=== PATIENT | male | born 1995 | race Caucasian/White ===

== ENCOUNTER 2021-09-08 11:49 | Outpatient (REF) | payer OTHER, SELFPAY ==
[2021-09-08 13:49] LABS: MANUAL DIFF FLAG NO
[2021-09-08 13:58] LABS: Basophils Percent Auto 0.2 % (0-2); Eosinophils Percent Auto 0.9 % (0-4); Hematocrit 39.7 % (42.0-52.0); Hemoglobin 12.8 g/dl (14.0-18.0); Imm Gran Abs Auto 0.01 X10*3/uL (0.00-0.03); Imm Gran Pct Auto 0.2 % (0.0-0.4); Lymphocytes Absolute Auto 1.3 X10*3/uL (1.2-4.9); Lymphocytes Percent Auto 30.7 % (20-40); Mean Corpuscular HGB Conc 32.2 g/dl (31.0-36.0); Mean Corpuscular Hemoglobin 30.3 pg (27.0-33.0); Mean Corpuscular Volume 93.9 fL (80.0-98.0); Mean Platelet Volume 10.3 fL (9.4-12.4); Monocytes Absolute Auto 0.3 X10*3/uL (0.1-1.2); Monocytes Percent Auto 7.3 % (2-11); Neutrophils Absolute Auto 2.6 x10*3/uL (2.0-8.3); Neutrophils Percent Auto 60.7 % (45-73); Platelet Count 286 X10*3/uL (160-400); Red Blood Count 4.23 X10*6/uL (4.60-5.80); Red Cell Distribution Width 12.4 % (11.0-16.0); White Blood Count 4.4 X10*3/uL (4.8-10.8)
[2021-09-08 14:45] LABS: Alanine Aminotransferase 15 U/L (0-40); Albumin Level 4.5 g/dL (3.5-5.0); Alkaline Phosphatase 68 U/L (39-117); Anion Gap 10 (12-20); Aspartate Amino Transferase 19 U/L (5-37); Bilirubin Total 0.6 mg/dL (0.0-1.0); C Reactive Protein 0.02 mg/dL (< or = 0.50); Carbon Dioxide 28 mmol/L (22-29); Chloride 105 mmol/L (96-108); Cholesterol 181 mg/dL; Estimated Glomerular Filt Rate > 60; Glucose Fasting 99 mg/dL (60-99); Sodium 139 mmol/L (135-145); Total Protein 7.3 g/dL (6.5-8.0)
[2021-09-08 14:52] LABS: Thyroid Stimulating Hormone 0.65 uIU/mL (0.32-4.0)
[2021-09-08 15:25] LABS: Blood Urea Nitrogen 13 mg/dL (9-16); Calcium 9.8 mg/dL (8.4-10.2)
[2021-09-08 21:38] LABS: Vitamin B12 420 pg/mL (200-900)
== END 2021-09-08 11:50 | disposition home or self-care (01) ==
LOC: HO.10HDL 11:49
PROVIDERS: Visit Provider Internal Medicine
DX: Z00.00 Encounter for general adult medical examination without abnormal findings (principal); R63.4 Abnormal weight loss
CPT/HCPCS: 36415; 80053; 82465; 82607; 84439; 84443; 85025; 86140

== ENCOUNTER 2021-09-15 12:50 | Outpatient (REF) | payer OTHER, SELFPAY ==
--- NOTE | 2021-09-15 12:59 | EEG_ITS ---
This is a 16-channel EEG with an EKG lead. Patient is reported alert and awake during the tracing. Background EEG rhythm is low amplitude, fast with no obvious asymmetry or paroxysmal tendency. Photic stimulation does not produce any significant abnormality. Hyperventilation is not performed. Cardiac lead does not reveal any significant abnormality. IMPRESSION: Unremarkable EEG. MD SOPHIE Desouza/SULAIMAN / [id number]
== END 2021-09-15 12:51 | disposition home or self-care (01) ==
LOC: HO.NEURO 12:50
PROVIDERS: PCP Internal Medicine; Visit Provider Internal Medicine
DX: R51.9 Headache, unspecified (principal); F98.5 Adult onset fluency disorder
CPT/HCPCS: 95816

== ENCOUNTER 2021-09-19 13:45 | Emergency (ER) | payer OTHER, SELFPAY ==
[2021-09-19 13:54] VITALS: BP 148/85; PULSE 103; RESP 18; TEMP 36.7; O2SAT 99; BMI 21.9
[2021-09-19 15:56] LABS: MANUAL DIFF FLAG NO
[2021-09-19 15:57] LABS: Hematocrit 44.7 % (42.0-52.0); Hemoglobin 14.4 g/dl (14.0-18.0); White Blood Count 8.1 X10*3/uL (4.8-10.8)
[2021-09-19 15:58] LABS: Basophils Percent Auto 0.2 % (0-2); Eosinophils Percent Auto 0.1 % (0-4); Imm Gran Abs Auto 0.02 X10*3/uL (0.00-0.03); Imm Gran Pct Auto 0.2 % (0.0-0.4); Lymphocytes Absolute Auto 1.3 X10*3/uL (1.2-4.9); Lymphocytes Percent Auto 16.2 % (20-40); Mean Corpuscular HGB Conc 32.2 g/dl (31.0-36.0); Mean Corpuscular Volume 93.1 fL (80.0-98.0); Mean Platelet Volume 9.2 fL (9.4-12.4); Monocytes Absolute Auto 0.3 X10*3/uL (0.1-1.2); Monocytes Percent Auto 4.2 % (2-11); Neutrophils Absolute Auto 6.4 x10*3/uL (2.0-8.3); Neutrophils Percent Auto 79.1 % (45-73); Platelet Count 310 X10*3/uL (160-400); Red Cell Distribution Width 12.4 % (11.0-16.0)
[2021-09-19 16:17] LABS: Alanine Aminotransferase 25 U/L (0-40); Alkaline Phosphatase 66 U/L (39-117); Anion Gap 11 (12-20); Aspartate Amino Transferase 22 U/L (5-37); Bilirubin Total 0.8 mg/dL (0.0-1.0); Blood Urea Nitrogen 10 mg/dL (9-16); Calcium 10.2 mg/dL (8.4-10.2); Carbon Dioxide 29 mmol/L (22-29); Chloride 103 mmol/L (96-108); Creatinine Clr Calc Pharmacy 97.7; Estimated Glomerular Filt Rate > 60; Glucose Random 106 mg/dL (60-115); Potassium 4.3 mmol/L (3.3-5.1); Sodium 139 mmol/L (135-145); Total Protein 8.2 g/dL (6.5-8.0)
--- NOTE | 2021-09-19 17:29 | ED_ITS ---
HPI - Headache General Chief Complaint: Headache Stated Complaint: head pain numbness l side facial and hand Time Seen by Provider: 09/19/21 17:29 Source: patient Mode of arrival: ambulatory Limitations: no limitations History of Present Illness HPI Narrative: Patient nonspecific tingling pain on the top of the headache for 2 months off and on no photosensitivity no nausea no vomiting no neck pain patient does have history of migraine but is usually different location seen his PCP was started on Topamax and gabapentin pain does not increase with neck movement no hand weakness no nausea or vomiting Related Data Previous Rx's Medication Instructions Recorded faaoioopvr-ykxnvhypftoza-elyreagq 1 cap PO Q6H PRN #20 cap 09/19/21 50 mg-300 mg-40 mg capsule (Fioricet) lorazepam 1 mg tablet (Ativan) 1 mg PO BEDTIME PRN #7 tab 09/19/21 Allergies Allergy/AdvReac Type Severity Reaction Status Date / Time No Known Allergies Allergy Unverified 04/16/20 16:44 Review of Systems Review of Systems: Yes all other systems are reviewed and are negative [facility] Past Medical History Medical History Migraine Social History Social History Advance Directives: No Advance Directives Information Provided: No Physical Exam Vital Signs: Vital Signs: Last Vital Signs Temp 98.1 F 09/19/21 13:54 Pulse 103 H 09/19/21 13:54 Resp 18 09/19/21 13:54 BP 148/85 H 09/19/21 13:54 Pulse Ox 99 09/19/21 13:54 BMI result Body Mass Index 21.9 Appearance: Alert. Oriented X3. No acute distress. Eyes: PERRLA, No Nystagmus ENT: Pharynx normal. Oral Mucosa moist mild scalp tenderness at the top of the head Neck: Normal inspection. Neck supple. No midline tenderness CVS: Normal heart rate and rhythm. Pulses normal. Respiratory: No respiratory distress. Equal air entry bilateral Abdomen: Soft and nontender. Skin: Skin warm and dry. Normal skin color. Normal skin turgor. Extremities: No lower extremity edema. No calf tenderness Neuro: Oriented X 3. No motor deficit. No sensory deficit.No cerebellar signs , cranial nerves II-XII intact MDM - Headache MDM Narrative Medical decision making narrative: Patient with nonspecific scalp tenderness likely tension headache discharged on Fioricet Ativan for anxiety Lab Data Attestation: I reviewed the patient's lab results. Result diagrams: 09/19/21 15:51 09/19/21 15:51 Labs: Lab Results 09/19/21 09/19/21 Range/Units 15:51 15:51 WBC 8.1 (4.8-10.8) X10*3/uL RBC 4.80 (4.60-5.80) X10*6/uL Hgb 14.4 (14.0-18.0) g/dl Hct 44.7 (42.0-52.0) % MCV 93.1 (80.0-98.0) fL MCH 30.0 (27.0-33.0) pg MCHC 32.2 (31.0-36.0) g/dl RDW 12.4 (11.0-16.0) % Plt Count 310 (160-400) X10*3/uL MPV 9.2 L (9.4-12.4) fL Immature Gran % (Auto) 0.2 (0.0-0.4) % Neut % (Auto) 79.1 H (45-73) % Lymph % (Auto) 16.2 L (20-40) % [place] % (Auto) 4.2 (2-11) % Eos % (Auto) 0.1 (0-4) % Baso % (Auto) 0.2 (0-2) % Lymph # (Auto) 1.3 (1.2-4.9) X10*3/uL [place] # (Auto) 0.3 (0.1-1.2) X10*3/uL Eos # (Auto) 0.0 (0.0-0.4) X10*3/uL Baso # (Auto) 0.0 (0.0-0.2) X10*3/uL Abs Immat Gran (auto) 0.02 (0.00-0.03) X10*3/uL Absolute Neuts (auto) 6.4 (2.0-8.3) x10*3/uL Absolute Nucleated RBC 0.000 (0.0-0.012) X10*3/uL Nucleated RBC % (auto) 0.0 (0.0-0.2) /100WBC Sodium 139 (135-145) mmol/L Potassium 4.3 (3.3-5.1) mmol/L Chloride 103 (96-108) mmol/L Carbon Dioxide 29 (22-29) mmol/L Anion Gap 11 L (12-20) BUN 10 (9-16) mg/dL Creatinine 1.02 (0.5-1.4) mg/dL Estim Creat Clear Calc 97.7 Estimated GFR > 60 Random Glucose 106 (60-115) mg/dL Calcium 10.2 (8.4-10.2) mg/dL Total Bilirubin 0.8 (0.0-1.0) mg/dL AST 22 (5-37) U/L ALT 25 (0-40) U/L Alkaline Phosphatase 66 (39-117) U/L Total Protein 8.2 H (6.5-8.0) g/dL Albumin 5.0 (3.5-5.0) g/dL Discharge Plan Discharge Clinical Impression: Tension headache Patient Disposition: Home, Self-Care Instructions: Tension Headache (ED) Prescriptions: New unrftzwahr-mzazvmtsisixa-jbqm [Fioricet] 50-300-40 mg capsule 1 cap PO Q6H PRN (Reason: headache) Qty: 20 0RF lorazepam [Ativan] 1 mg tablet 1 mg PO BEDTIME PRN (Reason: sleep) Qty: 7 0RF Interventions: ED Discharge Assessment Last Done: 09/19/21 18:00 Discharge Date/Time: 09/19/21 18:01
[2021-09-19] MEDS: Butalb/Acetamin/Caff 50/325/40 TABLET 1 TAB PO (17:59)
== END 2021-09-19 18:01 | disposition home or self-care (01) ==
PROVIDERS: Emergency Provider Internal Medicine; PCP Internal Medicine
DX: G44.209 Tension-type headache, unspecified, not intractable (principal); Z79.899 Other long term (current) drug therapy
CPT/HCPCS: 36415; 80053; 85025; 99283

== ENCOUNTER 2022-08-10 10:24 | Outpatient (REF) | payer OTHER, SELFPAY ==
[2022-08-10 11:20] LABS: MANUAL DIFF FLAG NO
[2022-08-10 11:27] LABS: Basophils Percent Auto 0.5 % (0-2); Eosinophils Absolute Auto 0.1 X10*3/uL (0.0-0.4); Eosinophils Percent Auto 1.7 % (0-4); Hematocrit 38.7 % (42.0-52.0); Hemoglobin 12.5 g/dl (14.0-18.0); Imm Gran Abs Auto 0.01 X10*3/uL (0.00-0.03); Imm Gran Pct Auto 0.2 % (0.0-0.4); Immature Retic Fraction 6.1 % (2.3-13.4); Lymphocytes Absolute Auto 1.6 X10*3/uL (1.2-4.9); Lymphocytes Percent Auto 38.7 % (20-40); Mean Corpuscular HGB Conc 32.3 g/dl (31.0-36.0); Mean Corpuscular Hemoglobin 30.6 pg (27.0-33.0); Mean Corpuscular Volume 94.6 fL (80.0-98.0); Mean Platelet Volume 9.9 fL (9.4-12.4); Monocytes Absolute Auto 0.3 X10*3/uL (0.1-1.2); Monocytes Percent Auto 8.4 % (2-11); Neutrophils Percent Auto 50.5 % (45-73); Platelet Count 259 X10*3/uL (160-400); Red Blood Count 4.09 X10*6/uL (4.60-5.80); Red Cell Distribution Width 12.2 % (11.0-16.0); Retic HGB Equivalent 34.7 pg (30.0-35.0); Reticulocyte Percent 0.9 % (0.5-1.8); Reticulocytes Absolute 0.035 X10*6/uL (0.026-0.095)
[2022-08-10 12:02] LABS: Anion Gap 12 (12-20); Blood Urea Nitrogen 14 mg/dL (9-16); C Reactive Protein < 0.04 mg/dL (< or = 0.50); Calcium 9.7 mg/dL (8.4-10.2); Carbon Dioxide 28 mmol/L (22-29); Chloride 105 mmol/L (96-108); Estimated Glomerular Filt Rate > 60; Glucose Random 92 mg/dL (60-115); Iron 106 mcg/dL (45-160); Percent Iron Saturation 37 % (15-50); Potassium 4.1 mmol/L (3.3-5.1); Sodium 141 mmol/L (135-145); Total Iron Binding Capacity 287 mcg/dL (228-428); Unsaturated Iron Binding 181 ug/dL
[2022-08-10 12:19] LABS: Erythrocyte Sedimentation Rate 2 MM/HR (0-15)
[2022-08-10 12:23] LABS: Folate 14.1 ng/mL (> or = 4.0)
[2022-08-12 05:28] LABS: Lyme Abs Screen <0.90 index
== END 2022-08-10 10:25 | disposition home or self-care (01) ==
LOC: HO.10HDL 10:24
PROVIDERS: Visit Provider Internal Medicine
DX: D64.9 Anemia, unspecified (principal); R51.9 Headache, unspecified; M19.90 Unspecified osteoarthritis, unspecified site
CPT/HCPCS: 36415; 80048; 82550; 82746; 83540; 85025; 85045; 85652; 86140; 86617; 86618

== ENCOUNTER 2022-08-23 12:50 | Outpatient (REF) | payer OTHER, SELFPAY ==
--- NOTE | ~2022-08-23 | CT_ITS ---
EXAMINATION: CT HEAD WITHOUT CONTRAST CLINICAL INFORMATION: Headaches with arthralgia. COMPARISON: Head CT dated 04/25/2009. TECHNIQUE: Contiguous axial imaging was performed from the skullbase to vertex without intravenous administration of contrast. This CT examination was performed using dose optimization techniques as appropriate, variously including the following: *Automated exposure control *Adjustment of mA and/or kV according to patient size (this includes techniques or standardized protocols for targeted exams where dose is matched to indication/reason for exam; i.e. extremities or head) *Use of iterative reconstruction technique DLP: 739 mGy-cm. FINDINGS: There is no evidence of acute intracranial hemorrhage or territorial infarction. No abnormal mass effect or midline shift is seen. [place] to white matter differentiation is well preserved. No extra-axial fluid collections are identified. The ventricles are normal in size. There is no abnormal attenuation within the brain parenchyma. The osseous structures and soft tissues are normal. The mastoid air cells and visualized portions of the paranasal sinuses are well aerated. CT/CT head/brain wo IV con IMPRESSION: No acute intracranial pathology.
== END 2022-08-23 12:51 | disposition home or self-care (01) ==
LOC: HO.CT 12:50
PROVIDERS: PCP Internal Medicine; Visit Provider Internal Medicine
DX: R51.9 Headache, unspecified (principal); M54.2 Cervicalgia; M79.601 Pain in right arm
CPT/HCPCS: 70450

== ENCOUNTER → 2022-09-08 13:49 | Outpatient (BNVA) | payer OTHER, SELFPAY | PROVIDERS: PCP Internal Medicine; Visit Provider Urology | DX: Z13.89 Encounter for screening for other disorder (principal) ==

== ENCOUNTER → 2022-11-09 13:43 | Outpatient (BNVA) | payer OTHER, SELFPAY | PROVIDERS: PCP Internal Medicine; Visit Provider Urology | DX: Z13.89 Encounter for screening for other disorder (principal) ==

== ENCOUNTER 2023-04-28 10:20 | Outpatient (REF) | payer OTHER, SELFPAY ==
[2023-04-28 10:49] LABS: MANUAL DIFF FLAG NO
[2023-04-28 10:55] LABS: Appearance Urine Clear; Color Urine Yellow; Glucose Urine UA Negative (Negative); Leukocyte Esterase Urine Negative (Negative); Nitrite Urine Negative (Negative); PH 5.5 (5.0-9.0); Specific Gravity - Urine 1.025 (1.005-1.025); Urine Blood Negative (Negative); Urine Ketones Trace mg/dL (Negative); Urine Protein Negative (Neg-Trace)
[2023-04-28 11:01] LABS: Bacteria Urine None Seen (None Seen); Hyaline Casts Urine 0-2 /LPF (0-2); RBC Urine 0-2 /HPF (0-2); Squamous Epithelial Cell Urine 0-2 /HPF (0-2); WBC Urine 0-5 /HPF (0-5)
[2023-04-28 11:05] LABS: Basophils Percent Auto 0.6 % (0-2); Eosinophils Absolute Auto 0.1 X10*3/uL (0.0-0.4); Eosinophils Percent Auto 2.5 % (0-4); Hematocrit 42.1 % (42.0-52.0); Hemoglobin 13.6 g/dl (14.0-18.0); Imm Gran Abs Auto 0.01 X10*3/uL (0.00-0.03); Imm Gran Pct Auto 0.2 % (0.0-0.4); Lymphocytes Percent Auto 38.7 % (20-40); Mean Corpuscular HGB Conc 32.3 g/dl (31.0-36.0); Mean Corpuscular Hemoglobin 30.9 pg (27.0-33.0); Mean Corpuscular Volume 95.7 fL (80.0-98.0); Mean Platelet Volume 9.8 fL (9.4-12.4); Monocytes Absolute Auto 0.4 X10*3/uL (0.1-1.2); Monocytes Percent Auto 6.8 % (2-11); Neutrophils Absolute Auto 2.6 x10*3/uL (2.0-8.3); Neutrophils Percent Auto 51.2 % (45-73); Platelet Count 307 X10*3/uL (160-400); Red Cell Distribution Width 12.1 % (11.0-16.0); Retic HGB Equivalent 35.3 pg (30.0-35.0); Reticulocyte Percent 1.2 % (0.5-1.8); Reticulocytes Absolute 0.054 X10*6/uL (0.026-0.095); White Blood Count 5.1 X10*3/uL (4.8-10.8)
[2023-04-28 11:27] LABS: Anion Gap 16 (12-20); Blood Urea Nitrogen 17 mg/dL (9-16); Carbon Dioxide 25 mmol/L (22-29); Chloride 104 mmol/L (96-108); Estimated Glomerular Filt Rate > 60; Potassium 3.6 mmol/L (3.3-5.1); Sodium 141 mmol/L (135-145)
[2023-04-28 11:28] LABS: C Reactive Protein < 0.04 mg/dL (< or = 0.50); Calcium 9.5 mg/dL (8.4-10.2); Cholesterol 186 mg/dL (<200); Glucose Random 99 mg/dL (60-115); Iron 76 mcg/dL (45-160); Percent Iron Saturation 26 % (15-50); Total Iron Binding Capacity 291 mcg/dL (228-428); Unsaturated Iron Binding 215 ug/dL
[2023-04-28 13:47] LABS: CT PCR NOT DETECTED (Not Detect.); NG PCR NOT DETECTED (Not Detect.)
== END 2023-04-28 10:21 | disposition home or self-care (01) ==
LOC: HO.10HDL 10:20
PROVIDERS: Visit Provider Internal Medicine
DX: Z00.00 Encounter for general adult medical examination without abnormal findings (principal); D64.9 Anemia, unspecified; N45.1 Epididymitis; Z20.2 Contact with and (suspected) exposure to infections with a predominantly sexual mode of transmission; R82.90 Unspecified abnormal findings in urine
CPT/HCPCS: 0353U; 80048; 81001; 82465; 83540; 85025; 85045; 86140; 87086

== ENCOUNTER 2024-10-14 13:23 | Outpatient (AMB) | payer OTHER, SELFPAY ==
--- NOTE | 2024-10-14 13:23 | MHC.PC.OV ---
Vital Signs 10/14/24 13:25 Height 5 ft 7 in Weight 167 lb BMI 26.2 BP 120/72 Respiration 16 Pulse 100 Pulse Source Pulse Oximeter Temp 98.1 F Temp Source Temporal Artery Scan Pulse Oximetry (%) 99 Oxygen Delivery Method Room Air Intake Visit Reasons: Routine Academic Support Coordinator Required: No Accompanied by: Self / Same As Patient Allergies No Known Allergies Allergy (Verified 10/15/24 09:56) Medication List - Last Reconciled 10/15/24 by Iron Rey MD omeprazole 20 mg PO DAILY Tobacco use date assessed: 10/14/24 Dental Screening Dental Screen Date: 10/14/24 Did you have a dental visit in the last 12 months?: Yes Did you have a dental problem in the last 6 months where you did not have access to dental care?: No HPI Routine HPI Details 29 yr old male presents to the office for a sick visit. Patient is complaining of nausea, belching, burping and stomach discomfirt. Symptoms present for the past one month. No vomiting. Bowel movements are regular. Does not recall taking excess NSAIDS or Carbonated drinks. [facility]LY [facility] Medical History (Updated 10/15/24 @ 10:00 by Iron Rey MD) GERD (gastroesophageal reflux disease) Migraine Family History (Updated 10/14/24 @ 13:30 by ROSALES Corona) Father No problems noted. Mother Heart problem Social History (Updated 10/14/24 @ 13:24 by ROSALES Corona) Housing: House Alcohol intake: current Alcohol intake frequency: holidays/special occasions only Patient Tobacco Use Status: Never used Tobacco service: No Current occupational status: employed Cognitive needs: No Hearing needs: No Vision needs: No Questionnaire PHQ-9 Over the last 2 weeks, how often have you been bothered by any of the following problems? 1. Little interest or pleasure in doing things: not at all 2. Feeling down, depressed, or hopeless: not at all 3. Trouble falling or staying asleep, or sleeping too much: not at all 4. Feeling tired or having little energy: not at all 5. Poor appetite or overeating: not at all 6. Feeling bad about yourself - or that you are a failure or have let yourself or your family down: not at all 7. Trouble concentrating on things, such as reading the newspaper or watching television: not at all 8. Moving or speaking so slowly that other people could have noticed. Or the opposite - being so fidgety or restless that you have been moving around a lot more than usual: not at all 9. Thoughts that you would be better off or of hurting yourself in some way: not at all Total score: 0 Depression Screening Interpretation: Negative Depression Screening Done: Yes Source: Developed by Drs. Patrick Jauregui, Inez Carter, Mir An and colleagues, with an educational dash from [employer]. Thrive Questionnaire Date Thrive assessed: 10/14/24 I am a: Patient What is your living situation today?: I have a steady place to live Within the past 12 months, did the food you bought not last and you didn't have the money to get more?: Never true Within the past 12 months, did you worry whether your food would run out before you got money to buy more?: Never true Do you have trouble paying for medicines?: No Do you have trouble getting transportation to medical appointments?: No Do you have trouble paying your heating and electricity bill?: No Do you have trouble taking care of your child, family member or friend?: No Do you have trouble with day-to-day activities such as bathing, preparing meals, shopping, managing finances, etc.?: No Are you currently unemployed and looking for a job?: No Are you interested in more education?: No Currently or been in a relationship where the following occur: No concerns reported THRIVE Score: 0 AUDIT C Alcohol Use Questionnaire (AUDIT-C) 1. How often do you have a drink containing alcohol?: Monthly or less 2. How many drinks containing alcohol do you have on a typical day when you are drinking?: 1 or 2 3. How often do you have six or more drinks on one occasion?: Never Total Score: 1 LUANA-7 AMB Questionnaire LUANA-7 Date LUANA - 7 assessed: 10/14/24 Feeling nervous, anxious, or on edge: 0 = Not at all Not being able to stop or control worryin = Not at all Worrying too much about different things: 0 = Not at all Trouble relaxin = Not at all Being so restless that it is hard to sit still: 0 = Not at all Becoming easily annoyed or irritable: 0 = Not at all Feeling afraid as if something awful might happen: 0 = Not at all Total LUANA-7 score (0-4 normal; 5-9 mild; 10-14 moderate; 15-21 severe): 0 Source: Developed by Drs. Patrick Jauregui, Ienz Carter, Mir An and colleagues, with an educational dash from [employer]. Physical exam (Primary Care) Vital Signs: Last Vital Signs Temp 98.1 F 10/14/24 13:25 Pulse 100 10/14/24 13:25 Resp 16 10/14/24 13:25 BP 120/72 10/14/24 13:25 Pulse Ox 99 10/14/24 13:25 Oxygen Delivery Method Room Air 10/14/24 13:25 Care Plan Goal for BP management: BP in range. BMI result Body Mass Index 26.2 Tobacco/Smoking Status: Tobacco use Status Tobacco use date assessed 10/14/24 10/14/24 13:30 Patient Tobacco Use Status Never used Tobacco 10/14/24 13:30 PHQ-9: PHQ-9 Score PHQ-9: Total score 0 10/14/24 13:30 Depression Screening Interpretation: Negative Thrive Assessment: Date of Thrive Assessment Date Thrive assessed 10/14/24 10/14/24 13:30 Currently or been in a relationship where the following occur: No concerns reported Const General: cooperative and healthy appearing Nutritional Appearance: well nourished Orientation/consciousness: patient oriented x3 Limitations: no limitations HENMT Head: Yes normal to inspection Eyes General: appearance normal, both eyes and all related structures Neck Neck: Yes normal visual inspection Chest Chest palpation & inspection: normal palpation of entire chest wall Resp Effort & Inspection: normal respiratory effort Neuro General: patient oriented x3 Coding Level of Care Code New Pt Level 3 (59060) Complex EM visit Add On G2211 Diagnoses GERD (gastroesophageal reflux disease) K21.9 Assessment & Plan Assessment & Plan (1) GERD (gastroesophageal reflux disease): Code(s): K21.9 - Gastro-esophageal reflux disease without esophagitis Category: Medical Plan: PPI started. To try the medications for a month. If symptoms persist to return to the office for a follow up visit. Medications: New omeprazole 20 mg PO DAILY 30 caps 1RF
[2024-10-14 13:25] VITALS: BP 120/72; PULSE 100; RESP 16; TEMP 36.7; O2SAT 99; BMI 26.2
--- OUTSIDE RECORDS SUMMARY | 2024-10-14 15:34 | XMS_ITS | Encounter Summary ---
Author Organization [facility] Address [address] [place] [id number] Phone Care Team Providers Care Publicity Director Name Role Phone Michael Sibley MD Primary Care Provider Unavailabl e Encounter Details Date Type Department Care Team (Late st Contact Info) Description 12/18/2009 Documentation [facility] [place] Family Medicine [address] [place] [address] Family Medicine, Physician [facility] [address] [place], [place] [phone] Social History Tobacco Use Types Packs/Day Years Used Date Smoking Tobacco: Never Assessed Sex and Gender Information Value Date Recorded Sex Assigned at Not on file Legal Sex Male 5:00 PM EDT Gender Identity Not on file Sexual Orientation Not on file documented as of this encounter Plan of Treatment Not on file documented as of this encounter Visit Diagnoses Not on filedocumented in this encounter Care Teams Publicity Director Relationship Specialty Start Date End Date Michael Sibley MD PCP - General 03/10/17 documented as of this encounter
--- OUTSIDE RECORDS SUMMARY | 2024-10-14 15:34 | XMS_ITS | Encounter Summary ---
Author Organization [facility] Address [address] [place] [phone] Phone Care Team Providers Care Ship Yard Electrical Person Name Role Phone Michael Sibley MD Primary Care Provider Unavailabl e Encounter Details Date Type Department Care Team (Late st Contact Info) Description 04/16/2014 Documentation [facility] [place] Family Medicine [address] [place] [address] Family Medicine, Physician [facility] [address] [place], [place] [phone] Social History Tobacco Use Types Packs/Day Years [...] on filedocumented in this encounter Care Teams Ship Yard Electrical Person Relationship Specialty Start Date End Date Michael Sibley MD PCP - General 03/10/17 documented as of this encounter
--- OUTSIDE RECORDS SUMMARY | 2024-10-14 15:34 | XMS_ITS | Encounter Summary ---
Author Organization [facility] Address [address] [place] [phone] Phone Care Team Providers Care Crown Perforator Operator Name Role Phone Michael Sibley MD Primary Care Provider Unavailabl e Encounter Details Date Type Department Care Team (Late st Contact Info) Description 03/16/2017 Conversion Encounter [facility] - [address] [address] Social History Tobacco Use Types Packs/Day Years Used Date Smoking Tobacco: Never Comments:Never smoker Sex and Gender Information Value Date Recorded Sex Assigned at Not on file Legal Sex Male 5:00 PM EDT Gender Identity Not on file Sexual Orientation Not on file documented as of this encounter Plan of Treatment Not on file documented as of this encounter Visit Diagnoses Not on filedocumented in this encounter Care Teams Crown Perforator Operator Relationship Specialty Start Date End Date Michael Sibley MD PCP - General 03/10/17 documented as of this encounter
--- OUTSIDE RECORDS SUMMARY | 2024-10-14 15:34 | XMS_ITS | Encounter Summary ---
Author Organization [facility] Address [address] [place] [phone] Phone Care Team Providers Care Certified Pharmacist Assistant Name Role Phone Michael Sibley MD Primary Care Provider Unavailabl e Encounter Details Date Type Department Care Team (Late st Contact Info) Description 07/13/2012 Documentation [facility] [place] Family Medicine [address] [place] [address] Family Medicine, Physician [facility] [address] [place], [place] [phone] Social History Tobacco Use Types Packs/Day Years [...] on filedocumented in this encounter Care Teams Certified Pharmacist Assistant Relationship Specialty Start Date End Date Michael Sibley MD PCP - General 03/10/17 documented as of this encounter
--- OUTSIDE RECORDS SUMMARY | 2024-10-14 15:34 | XMS_ITS | Clinical Summary ---
Author Organization [facility] Address [address] [place] [phone] Phone Care Team Providers Care Drying Can Worker Name Role Phone Michael Sibley MD Primary Care Provider Unavailabl e Immunizations Immunization Administration Dates Next Due DTP 03/24/1999, 6,01/10/1995,11/22,1994 HPV Vaccine 9 Valent 06/23/2015 Hep A, Adult 06/23/2015 Hep B, ped/adol 11/07/1995,1994,1994 Hib (PRP-T) 11/07/1995, 5,1994,10/04 IPV 03/24/1999, 5,1994,10/04 Influenza Split 10/13/2011,09/09/2010 Influenza, injectable, quadr ivalent, preservative free 06/23/2015 Influenza, injectable, trivalent 04/09/2009,06/30 Influenza, intranasal, trivalent 07/05/2012 MMR 03/24/1999,08/28/1995 Meningococcal Conj (Menactra) MCV4P 06/23/2015,0 02/22/2007 Tdap 11/17/2006 Varicella 02/21/2008,03/24/1999 Family History Relation Name Status Comments Brother Alive Brother: Alive and well, Migraines Father Alive Father: Alive a nd well Half-Sister adopted sister: Asthma Maternal Grandfather Materna l grandfather: Depression Maternal Grandmother Materna l grandmother: Diabetic, cancer Mother Mother: Migrain es, Myocardial infarction Other 1 grandmother: Se izure disorder Other 2 Family history of Hyperlipidemia, Family history of Sudden /ME under 55 Social History Tobacco Use Types Packs/Day Years Used Date Smoking Tobacco: Never Comments:Never smoker Sex and Gender Information Value Date Recorded Sex Assigned at Not on file Legal Sex Male 5:00 PM EDT Gender Identity Not on file Sexual Orientation Not on file Last Filed Vital Signs Vital Sign Reading Time Taken Comments Blood Pressure 129/73 10/09/2015 12:00 AM EST Pulse 105 08/03/2015 12:00 AM EST Temperature 36.6 ??C (97.9 ??F) 10/09/2015 12:[address] Respiratory Rate - - Oxygen Saturation - - Inhaled Oxygen Concentration - - Weight 66.9 kg (147 lb 6.4 oz) 10/09/2015 12:00 AM EST Height 168.3 cm (5' 6.25 ) 08/03/2015 12:[address] Body Mass Index 23.61 08/03/2015 12:00 AM EST Plan of Treatment Health Maintenance Due Date Last Done Comments HPV Vaccines (2 - Male 3-dose series) 07/21/2015 06/23/2015 DTaP,Tdap,and Td Vaccines (7 - Td or Tdap) 11/17/2016 11/17/2006, 03/24/1999, 11/07/1995, Additional history exists Influenza Vaccines (#1) 2024 06/23/20 15, 07/05/2012, 10/13/2011, Additional history exists COVID-19 Vaccine ( season) 2024 HIB Vaccines Completed 11/07/1995, 12/29, 1994, Additional history exists Hepatitis B Vaccines Completed 11/07/1995, 1994, 1994 IPV Vaccines Completed 03/24/1999, 12/29, 1994, Additional history exists MMR Vaccines Completed 03/24/1999, 08/28/1995 Varicella Vaccines Completed 02/21/2008, 03/24/1999 Hepatitis A Vaccines Aged Out 06/23/2015 No long er eligible based on patient's age to complete this topic Meningococcal Vaccine Aged Out 06/23/2015, 007 No longer eligible based on patient's age to complete this topic Men B Vaccine Aged Out No longer elig ible based on patient's age to complete this topic Pneumococcal Vaccine Aged Out No long er eligible based on patient's age to complete this topic Care Teams Drying Can Worker Relationship Specialty Start Date End Date Michael Sibley MD PCP - General 03/10/17
== END 2024-10-14 15:23 | disposition home or self-care (01) ==
LOC: HO.HMCHD 13:23
PROVIDERS: PCP Internal Medicine; Visit Provider Internal Medicine
DX: K21.9 Gastro-esophageal reflux disease without esophagitis (principal)

== ENCOUNTER → 2024-10-14 13:23 | Outpatient (BNVA) | payer OTHER, SELFPAY | PROVIDERS: PCP Internal Medicine; Visit Provider Internal Medicine ==

== ENCOUNTER 2024-12-18 13:25 | Outpatient (AMB) | payer OTHER, SELFPAY ==
--- NOTE | 2024-12-10 15:42 | MHC.PC.OV ---
Intake Visit Reasons: F/U Property Management Bookkeeper Required: No Accompanied by: Self / Same As Patient Allergies No Known Allergies Allergy (Verified 10/15/24 09:56) Tobacco use date assessed: 12/11/24 Dental Screening Dental Screen Date: 12/11/24 Did you have a dental visit in the last 12 months?: Yes Did you have a dental problem in the last 6 months where you did not have access to dental care?: No PFSH Medical History (Updated 10/15/24 @ 10:00 by Iron Rey MD) GERD (gastroesophageal reflux disease) Migraine Family History (Updated 10/14/24 @ 13:30 by ROSALES Corona) Father No problems noted. Mother Heart problem Social History (Updated 10/14/24 @ 13:24 by ROSALES Corona) Housing: House Alcohol intake: current Alcohol intake frequency: holidays/special occasions only Patient Tobacco Use Status: Never used Tobacco service: No Current occupational status: employed Cognitive needs: No Hearing needs: No Vision needs: No Questionnaire PHQ-9 Over the last 2 weeks, how often have you been bothered by any of the following problems? 1. Little interest or pleasure in doing things: not at all 2. Feeling down, depressed, or hopeless: not at all 3. Trouble falling or staying asleep, or sleeping too much: not at all 4. Feeling tired or having little energy: not at all 5. Poor appetite or overeating: not at all 6. Feeling bad about yourself - or that you are a failure or have let yourself or your family down: not at all 7. Trouble concentrating on things, such as reading the newspaper or watching television: not at all 8. Moving or speaking so slowly that other people could have noticed. Or the opposite - being so fidgety or restless that you have been moving around a lot more than usual: not at all 9. Thoughts that you would be better off or of hurting yourself in some way: not at all Total score: 0 Source: Developed by Drs. Patrick Jauregui, Inez Carter, Mir An and colleagues, with an educational dash from [employer]. Thrive Questionnaire Date Thrive assessed: 12/11/24 I am a: Patient Within the past 12 months, did the food you bought not last and you didn't have the money to get more?: Never true Within the past 12 months, did you worry whether your food would run out before you got money to buy more?: Never true Do you have trouble paying for medicines?: No Do you have trouble getting transportation to medical appointments?: No Do you have trouble paying your heating and electricity bill?: No Do you have trouble taking care of your child, family member or friend?: No Do you have trouble with day-to-day activities such as bathing, preparing meals, shopping, managing finances, etc.?: No Are you currently unemployed and looking for a job?: No Are you interested in more education?: No THRIVE Score: 0 AUDIT C Alcohol Use Questionnaire (AUDIT-C) 1. How often do you have a drink containing alcohol?: Never 3. How often do you have six or more drinks on one occasion?: Never Total Score: 0 LUANA-7 AMB Questionnaire LUANA-7 Date LUANA - 7 assessed: 12/11/24 Feeling nervous, anxious, or on edge: 0 = Not at all Not being able to stop or control worryin = Not at all Worrying too much about different things: 0 = Not at all Trouble relaxin = Not at all Being so restless that it is hard to sit still: 0 = Not at all Becoming easily annoyed or irritable: 0 = Not at all Feeling afraid as if something awful might happen: 0 = Not at all Total LUANA-7 score (0-4 normal; 5-9 mild; 10-14 moderate; 15-21 severe): 0 Source: Developed by Drs. Patrick Jauregui, Inez Carter, Mir An and colleagues, with an educational dash from [employer]. Physical exam (Primary Care) Tobacco/Smoking Status: Tobacco use Status Tobacco use date assessed 10/14/24 10/14/24 13:30 Patient Tobacco Use Status Never used Tobacco 10/14/24 13:30 Thrive Assessment: Date of Thrive Assessment Date Thrive assessed 10/14/24 10/14/24 13:30 Coding
[2024-12-18 13:24] VITALS: BP 122/70; PULSE 95; TEMP 36.7; O2SAT 99; BMI 26.2
--- NOTE | 2024-12-18 13:24 | MHC.PC.OV ---
Vital Signs 12/18/24 13:24 Height 5 ft 7 in Weight 167 lb BMI 26.2 BP 122/70 Blood Pressure Location Lt brachial Position Sitting Pulse 95 Pulse Source Pulse Oximeter Temp 98.1 F Temp Source Axillary Pulse Oximetry (%) 99 Oxygen Delivery Method Room Air Intake Visit Reasons: F/U Wood Technologist Required: No Accompanied by: Self / Same As Patient Allergies No Known Allergies Allergy (Verified 12/18/24 13:24) Tobacco use date assessed: 12/18/24 Dental Screening Dental Screen Date: 12/18/24 Did you have a dental visit in the last 12 months?: Yes Did you have a dental problem in the last 6 months where you did not have access to dental care?: No PFSH Medical History GERD (gastroesophageal reflux disease) Migraine Family History (Updated 12/18/24 @ 13:41 by Shahnaz Ryan MA) Father No problems noted. Mother Heart problem Social History Housing: House Alcohol intake: current Alcohol intake frequency: holidays/special occasions only Patient Tobacco Use Status: Never used Tobacco e-Cigarette/Vaping Use: Never Used service: No Current occupational status: employed Cognitive needs: No Hearing needs: No Vision needs: No Questionnaire PHQ-9 Over the last 2 weeks, how often have you been bothered by any of the following problems? 1. Little interest or pleasure in doing things: not at all 2. Feeling down, depressed, or hopeless: not at all 3. Trouble falling or staying asleep, or sleeping too much: not at all 4. Feeling tired or having little energy: not at all 5. Poor appetite or overeating: not at all 6. Feeling bad about yourself - or that you are a failure or have let yourself or your family down: not at all 7. Trouble concentrating on things, such as reading the newspaper or watching television: not at all 8. Moving or speaking so slowly that other people could have noticed. Or the opposite - being so fidgety or restless that you have been moving around a lot more than usual: not at all 9. Thoughts that you would be better off or of hurting yourself in some way: not at all Total score: 0 Source: Developed by Drs. Patrick Jauregui, Inez Carter, Mir An and colleagues, with an educational dash from [employer]. Thrive Questionnaire Date Thrive assessed: 12/18/24 I am a: Patient Within the past 12 months, did the food you bought not last and you didn't have the money to get more?: Never true Within the past 12 months, did you worry whether your food would run out before you got money to buy more?: Never true Do you have trouble paying for medicines?: No Do you have trouble getting transportation to medical appointments?: No Do you have trouble paying your heating and electricity bill?: No Do you have trouble taking care of your child, family member or friend?: No Do you have trouble with day-to-day activities such as bathing, preparing meals, shopping, managing finances, etc.?: No Are you currently unemployed and looking for a job?: No Are you interested in more education?: No THRIVE Score: 0 AUDIT C Alcohol Use Questionnaire (AUDIT-C) 1. How often do you have a drink containing alcohol?: Never 3. How often do you have six or more drinks on one occasion?: Never Total Score: 0 LUANA-7 AMB Questionnaire LUANA-7 Date LUANA - 7 assessed: 12/18/24 Feeling nervous, anxious, or on edge: 0 = Not at all Not being able to stop or control worryin = Not at all Worrying too much about different things: 0 = Not at all Trouble relaxin = Not at all Being so restless that it is hard to sit still: 0 = Not at all Becoming easily annoyed or irritable: 0 = Not at all Feeling afraid as if something awful might happen: 0 = Not at all Total LUANA-7 score (0-4 normal; 5-9 mild; 10-14 moderate; 15-21 severe): 0 Source: Developed by Drs. Patrick Jauregui, Mir De Leon and colleagues, with an educational dash from [employer]. Physical exam (Primary Care) Vital Signs: Last Vital Signs Temp 98.1 F 12/18/24 13:24 Pulse 95 12/18/24 13:24 BP 122/70 12/18/24 13:24 Pulse Ox 99 12/18/24 13:24 Oxygen Delivery Method Room Air 12/18/24 13:24 BMI result Body Mass Index 26.2 Tobacco/Smoking Status: Tobacco use Status Tobacco use date assessed 12/18/24 12/18/24 13:25 Patient Tobacco Use Status Never used Tobacco 12/18/24 13:25 e-Cigarette/Vaping Use Never Used 12/18/24 13:25 PHQ-9: PHQ-9 Score PHQ-9: Total score 0 12/18/24 13:41 Thrive Assessment: Date of Thrive Assessment Date Thrive assessed 12/18/24 12/18/24 13:25 Coding Level of Care Code Est Pt Level 4 (53105) Complex EM visit Add On G2211 Diagnoses GERD (gastroesophageal reflux disease) K21.9 Assessment & Plan Assessment & Plan (1) GERD (gastroesophageal reflux disease): Code(s): K21.9 - Gastro-esophageal reflux disease without esophagitis Category: Medical Plan: BW ordered. If sx continue to persist, will get GI eval Plan History of Present Illness The patient is a 29-year-old male presenting with persistent chest pain that began intermittently and now varies in location. Previous episodes of stomach discomfort resolved following treatment with Omeprazole. Despite normal cardiac evaluations, including a stress test and ultrasound, the persistent nature of the chest pain remains a concern, especially given its intermittency and the lack of a consistent pattern. These episodes sometimes disturb sleep, with Advil providing variable relief. Recent evaluations at [facility] included an x-ray with results deemed normal. Anxiety about potential cancer has been discussed and alleviated. Follow-up referrals to a clinical documentation improvement specialist and potential endoscopy are considered dependent on persistence of the symptoms. Overall management includes a cardiac review, analgesic use, and reassurance regarding cancer fears. 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 - Activity: Work involves wearing a vest that increases pressure on the chest. - Sleep: Reports occasional disruption in sleep pattern due to chest pain. Review of Systems - Cardiovascular: Reports persistent chest pain with fluctuating intensity. - Gastrointestinal: Denies current stomach discomfort, resolved with medication. - Musculoskeletal: Reports pressure under the vest during work. Physical Exam General: Cooperative and healthy appearing Nutritional Appearance: Well nourished Orientation/consciousness: Patient oriented x3 Limitations: No limitations Head: Normal to inspection General: Appearance normal, both eyes and all related structures Neck: Normal visual inspection Chest: Normal palpation of entire chest wall Respiratory: Breath sounds are clear, no abnormalities noted. ormal respiratory effort Neurology: Patient oriented x3 Results - Tests and Diagnostics: Stress test and heart ultrasound with normal results, x-ray at [facility] reported as normal. Plan 1. Chest Pain - Conduct blood work to identify potential underlying causes. - Consider gastroenterology referral and endoscopy for persistent symptoms. 2. Gastroesophageal Reflux Disease Gerd - Maintain current Omeprazole regimen to manage symptoms. - Discuss lifestyle modifications for potential symptom reduction. 3. Anxiety - Offer reassurance regarding normal cardiovascular findings and low cancer risk. - Explore stress reduction programs and supportive counseling if needed. Discussion Notes During the consultation, we thoroughly discussed the patient's persistent chest pain and related symptoms. I reassured the patient that cardiac and x-ray evaluations have shown no abnormalities, explaining that the risk of cancer is very low given these results. We reviewed treatment options, including continued use of Omeprazole for GERD-related issues. I highlighted the possibility of consulting a clinical documentation improvement specialist and undergoing an endoscopy if symptoms persist beyond one month. I advised ordering blood work to identify any potential underlying causes of the chest pain. Prozac?s use was not discussed; instead, I suggested stress management therapies to address the patient's anxiety and alleviate concerns about likely diagnoses and treatment efficacy. Patient Instructions - Complete blood work as soon as possible; remember, the lab is open in the mornings. - Continue to take Omeprazole for GERD symptoms. - Seek a gastroenterology consultation for possible endoscopy if chest pain persists another month. - Consider non-medicinal pain relief and stress management techniques. - Follow up in three months or sooner if symptoms worsen. Orders: Orders Basic Metabolic Panel Today K21.9 - Gastro-esophageal reflux disease without esophagitis Complete Blood Count no Diff Today K21.9 - Gastro-esophageal reflux disease without esophagitis Lipid Panel Today K21.9 - Gastro-esophageal reflux disease without esophagitis Liver Panel Today K21.9 - Gastro-esophageal reflux disease without esophagitis Thyroid Stimulating Hormone Today K21.9 - Gastro-esophageal reflux disease without esophagitis UA and rflx microscopic Today K21.9 - Gastro-esophageal reflux disease without esophagitis
--- OUTSIDE RECORDS SUMMARY | 2024-12-18 13:59 | XMS_ITS | Encounter Summary ---
Author Organization [facility] Address [address] [place] [phone] Phone Care Team Providers Care Lacrosse Player Name Role Phone Michael Sibley MD Primary Care Provider Unavailabl e Encounter Details Date Type Department Care Team (Late st Contact Info) Description 07/13/2012 Documentation [facility] [place] Family Medicine [address] [place] [address] Family Medicine, Physician [facility] [address] [place], [place] [phone] Social History Tobacco Use Types Packs/Day Years [...] on filedocumented in this encounter Care Teams Lacrosse Player Relationship Specialty Start Date End Date Michael Sibley MD PCP - General 03/10/17 documented as of this encounter
--- OUTSIDE RECORDS SUMMARY | 2024-12-18 13:59 | XMS_ITS | Encounter Summary ---
Author Organization [facility] Address [address] [place] [phone] Phone Care Team Providers Care Therapist Respiratory Name Role Phone Michael Sibley MD Primary Care Provider Unavailabl e Encounter Details Date Type Department Care Team (Late st Contact Info) Description 12/18/2009 Documentation [facility] [place] Family Medicine [address] [place] [address] Family Medicine, Physician [facility] [address] [place], [place] [phone] Social History Tobacco Use Types Packs/Day Years [...] on filedocumented in this encounter Care Teams Therapist Respiratory Relationship Specialty Start Date End Date Michael Sibley MD PCP - General 03/10/17 documented as of this encounter
--- OUTSIDE RECORDS SUMMARY | 2024-12-18 13:59 | XMS_ITS | Clinical Summary ---
Author Organization [facility] Address [address] [place] [phone] Phone Care Team Providers Care Drip Pumper Name Role Phone Michael Sibley MD Primary [...] history of Hyperlipidemia, Family history of Sudden /[place] under 55 Social History Tobacco Use Types [...] age to complete this topic Care Teams Drip Pumper Relationship Specialty Start Date End Date Michael Sibley MD PCP - General 03/10/17
--- OUTSIDE RECORDS SUMMARY | 2024-12-18 13:59 | XMS_ITS | Encounter Summary ---
Author Organization [facility] Address [address] [place] [phone] Phone Care Team Providers Care Optomechanical Technician Name Role Phone Michael Sibley MD Primary Care Provider Unavailabl e Encounter Details Date Type Department Care Team (Late st Contact Info) Description 03/16/2017 Conversion Encounter [facility] - [address] [address] Social History Tobacco Use Types Packs/Day Years [...] on filedocumented in this encounter Care Teams Optomechanical Technician Relationship Specialty Start Date End Date Michael Sibley MD PCP - General 03/10/17 documented as of this encounter
--- OUTSIDE RECORDS SUMMARY | 2024-12-18 13:59 | XMS_ITS | Encounter Summary ---
Author Organization [facility] Address [address] [place] [phone] Phone Care Team Providers Care Security Monitor Name Role Phone Michael Sibley MD Primary Care Provider Unavailabl e Encounter Details Date Type Department Care Team (Late st Contact Info) Description 04/16/2014 Documentation [facility] [place] Family Medicine [address] [place] [address] Family Medicine, Physician [facility] [address] [place], [place] [phone] Social History Tobacco Use Types Packs/Day Years [...] on filedocumented in this encounter Care Teams Security Monitor Relationship Specialty Start Date End Date Michael Sibley MD PCP - General 03/10/17 documented as of this encounter
== END 2024-12-18 14:09 | disposition home or self-care (01) ==
LOC: HO.HMCHD 13:25
PROVIDERS: PCP Internal Medicine; Visit Provider Internal Medicine
DX: K21.9 Gastro-esophageal reflux disease without esophagitis (principal)

== ENCOUNTER → 2024-12-18 13:25 | Outpatient (BNVA) | payer OTHER, SELFPAY | PROVIDERS: PCP Internal Medicine; Visit Provider Internal Medicine | DX: Z13.89 Encounter for screening for other disorder (principal) ==

== ENCOUNTER 2024-12-20 11:35 | Outpatient (REF) | payer OTHER, SELFPAY ==
--- OUTSIDE RECORDS SUMMARY | 2024-12-20 11:37 | XMS_ITS | Clinical Summary ---
Author Organization [facility] Address [address] [place] [phone] Phone Care Team Providers Care Residential Sales Associate Name Role Phone Michael Sibley MD Primary [...] history of Hyperlipidemia, Family history of Sudden /[place] under 55 Social History Tobacco Use Types [...] age to complete this topic Care Teams Residential Sales Associate Relationship Specialty Start Date End Date Michael Sibley MD PCP - General 03/10/17
[2024-12-20 13:40] LABS: Appearance Urine Clear; Color Urine Yellow; Glucose Urine UA Negative (Negative); Leukocyte Esterase Urine Negative (Negative); Nitrite Urine Negative (Negative); Urine Blood Negative (Negative); Urine Ketones Negative (Negative); Urine Protein Negative (Neg-Trace)
[2024-12-20 13:43] LABS: Hematocrit 40.3 % (42.0-52.0); Hemoglobin 13.1 g/dl (14.0-18.0); Mean Corpuscular HGB Conc 32.5 g/dl (31.0-36.0); Mean Corpuscular Hemoglobin 30.8 pg (27.0-33.0); Mean Corpuscular Volume 94.6 fL (80.0-98.0); Platelet Count 304 X10*3/uL (160-400); Red Blood Count 4.26 X10*6/uL (4.60-5.80); Red Cell Distribution Width 12.1 % (11.0-16.0); White Blood Count 4.6 X10*3/uL (4.8-10.8)
[2024-12-20 14:21] LABS: Alanine Aminotransferase 20 U/L (0-40); Albumin Level 4.9 g/dL (3.5-5.0); Alkaline Phosphatase 66 U/L (39-117); Anion Gap 10 (12-20); Aspartate Amino Transferase 23 U/L (5-37); Bilirubin Direct 0.2 mg/dL (0.0-0.5); Bilirubin Total 0.7 mg/dL (0.0-1.0); Blood Urea Nitrogen 14 mg/dL (9-16); Calcium 9.4 mg/dL (8.4-10.2); Carbon Dioxide 29 mmol/L (22-29); Chloride 107 mmol/L (96-108); Cholesterol 197 mg/dL (<200); Estimated Glomerular Filt Rate > 60; Glucose Random 95 mg/dL (60-115); HDL Cholesterol 65 mg/dL (>40); LDL Cholesterol Calculated 124 mg/dL (<100); Potassium 3.9 mmol/L (3.3-5.1); Sodium 142 mmol/L (135-145); Total Protein 7.4 g/dL (6.5-8.0); Triglycerides 40 mg/dL (<150)
[2024-12-20 14:38] LABS: Thyroid Stimulating Hormone 0.56 uIU/mL (0.32-4.0)
== END 2024-12-20 11:36 | disposition home or self-care (01) ==
LOC: HO.10HDL 11:35
PROVIDERS: Visit Provider Internal Medicine
DX: K21.9 Gastro-esophageal reflux disease without esophagitis (principal); Z13.6 Encounter for screening for cardiovascular disorders
CPT/HCPCS: 36415; 80048; 80061; 80076; 81003; 84443; 85027

== ENCOUNTER → 2025-03-28 07:59 | Outpatient (AMB) | payer OTHER, SELFPAY ==
--- NOTE | 2025-03-28 08:00 | A.OFFPC_ITS ---
Vital Signs 03/28/25 08:03 Height 5 ft 7 in Weight 165 lb BMI 25.8 BP 128/62 Blood Pressure Location Rt brachial Position Sitting Respiration 16 Pulse 85 Pulse Source Pulse Oximeter Temp 98.2 F Temp Source Temporal Artery Scan Pulse Oximetry (%) 98 Oxygen Delivery Method Room Air Intake Visit Reasons: 3 Month F/U Polyethylene Combiner Required: No Accompanied by: Self / Same As Patient Allergies No Known Allergies Allergy (Verified 03/28/25 08:02) Tobacco use date assessed: 12/18/24 Dental Screening Dental Screen Date: 12/18/24 HPI HPI Comments History of Present Illness Details The patient is a 29-year-old male presenting with dyspepsia. The sy mptoms were initially prescribed with omeprazole by Dr. Álvarez in November, with relief noted after a month. However, two to three weeks after discontinuation of the medication, symptoms recurred, and treatment was not resumed until two weeks prior to the current visit. The patient reports taking omeprazole typically with meals, approximately 7 to 15 minutes apart, instead of the recommended 30 to 40 minutes. Although he has been on the medication again for around a month, he is uncertain if it provides effective relief this time. The current status indicates sporadic resolution of symptoms when properly on medication. Regarding hypercholesterolemia, the patient reports that his recent blood work revealed elevated levels of LDL cholesterol. A family history reveals the patient's mother experienced a myocardial infarction at age 39, which is concerning for hereditary cholesterol issues. He has been advised to implement lifestyle changes rather than start pharmacological treatment immediately. The patient maintains a healthy diet but admits to a particular affinity for sweets, specifically cakes, which might contribute to his condition. Medical History: - Dyspepsia - Hypercholesterolemia Medications: - Omeprazole, taken for dyspepsia Family History: - Mother had a myocardial infarction at age 39 due to work stress. 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 - Denies smoking and alcohol use. - Regular exercise and activity level re lated to work. [facility] Medical History (Updated 03/28/25 @ 08:17 by Po Olsen MD) Hyperlipidemia GERD (gastroesophageal reflux disease) Migraine Family History (Updated 12/18/24 @ 13:41 by Shahnaz Ryan MA) Father No problems noted. Mother Heart problem Social History (Reviewed 12/18/24 @ 13:25 by SCOOBY Dodson Housing: House Alcohol intake: current Alcohol intake frequency: holidays/special occasions only Patient Tobacco Use Status: Never used Tobacco e-Cigarette/Vaping Use: Never Used service: No Current occupational status: employed Cognitive needs: No Hearing needs: No Vision needs: No Questionnaire PHQ-9 Over the last 2 weeks, how often have you been bothered by any of the following problems? 1. Little interest or pleasure in doing things: not at all 2. Feeling down, depressed, or hopeless: not at all 3. Trouble falling or staying asleep, or sleeping too much: not at all 4. Feeling tired or having little energy: not at all 5. Poor appetite or overeating: not at all 6. Feeling bad about yourself - or that you are a failure or have let yourself or your family down: not at all 7. Trouble concentrating on things, such as reading the newspaper or watching television: not at all 8. Moving or speaking so slowly that other people could have noticed. Or the op posite - being so fidgety or restless that you have been moving around a lot more than usual: not at all 9. Thoughts that you would be better off or of hurting yourself in some way: not at all Total score: 0 Depression Screening Interpretation: Negative Depression Screening Done: Yes 88053 - PHQ-9 Billing: Yes Source: Developed by Drs. Patrick Jauregui, Inez Carter, Mir An and colleagues, with an educational dash from [employer]. Thrive Questionnaire Date Thrive assessed: 03/28/25 I am a: Patient What is your living situation today?: I have a steady place to live Within the past 12 months, did the food you bought not last and you didn't have the money to get more?: Never true Within the past 12 months, did you worry whether your food would run out before you got money to buy more?: Never true Do you have trouble paying for medicines?: No Do you have trouble getting transportation to medical appointments?: No Do you have trouble paying your heating and electricity bill?: No Do you have trouble taking care of your child, family member or friend?: No Do you have trouble with day-to-day activities such as bathing, preparing meals, shopping, managing finances, etc.?: No Are you currently unemployed and looking for a job?: No Are you interested in more education?: No THRIVE Score: 0 AUDIT C Alcohol Use Questionnaire (AUDIT-C) 1. How often do you have a drink containing alcohol?: Monthly or less 2. How many drinks containing alcohol do you have on a typical day when you are drinking?: 1 or 2 Total Score: 1 Score Reviewed/Action Taken: Yes LUANA-7 AMB Questionnaire LUANA-7 Date LUANA - 7 assessed: 03/28/25 Feeling nervous, anxious, or on edge: 0 = Not at all Not being able to stop or control worryin = Not at all Worrying too much about different things: 0 = Not at all Trouble relaxin = Not at all Being so restless that it is hard to sit still: 0 = Not at all Becoming easily annoyed or irritable: 0 = Not at all Feeling afraid as if something awful might happen: 0 = Not at all Total LUANA-7 score (0-4 normal; 5-9 mild; 10-14 moderate; 15-21 severe): 0 Source: Developed by Drs. Patrick Jauregui, Inez Carter, Mir An and colleagues, with an educational dash from [employer]. LUANA-7 Assessment Billing LUANA-7 Assessment Tool: LUANA-7 Assessment 14833 Review of Systems Const Details: - Gastrointestinal: Reports dyspepsia. - Cardiovascular: Denies chest pain, shortness of breath. - Respiratory: Denies shortness of breath. - Neurological: Denies changes in vision or hearing. - Reproductive: Positive for being sexually active. - General: Denies nausea, vomiting, diarrhea, fever, or night sweats. All systems reviewed & are unremarkable except as noted in HPI and below Physical exam (Primary Care) Vital Signs: Last Vital Signs Temp 98.2 F 03/28/25 08:03 Pulse 85 03/28/25 08:03 Resp 16 03/28/25 08:03 BP 128/62 03/28/25 08:03 Pulse Ox 98 03/28/25 08:03 Oxygen Delivery Method Room Air 03/28/25 08:03 BMI result Body Mass Index 25.8 Tobacco/Smoking Status: Tobacco use Status Tobacco use date assessed 12/18/24 03/28/25 08:06 Patient Tobacco Use Status Never used Tobacco 03/28/25 08:06 e-Cigarette/Vaping Use Never Used 03/28/25 08:06 Depression Screening Interpretation: Negative Thrive Assessment: Date of Thrive Assessment Date Thrive assessed 12/18/24 03/28/25 08:06 Const Other: General: Alert and oriented, Well nourished, No acute distress. Eye: Pupils are equal, round and reactive to light, Intact accommodation, Extraocular movements are intact, Normal conjunctiva, Vision unchanged. HENT: Normocephalic, Atraumatic, Tympanic membranes are clear, Normal hearing, Oral mucosa is moist, No pharyngeal erythema, Ear canals patent. Respiratory: Lungs CTA bilaterally, No wheeze, Respirations are non-labored. Cardiovascular: Regular rate, Regular rhythm, S1 auscultated, S2 auscultated, No murmur, Good pulses equal in all extremities, Normal peripheral perfusion, No edema. Gastrointestinal: Soft, Non-tender, Non-distended, Normal bowel sounds, No organomegaly. Musculoskeletal: Normal range of motion, Normal strength, No tenderness, No swelling, No deformity, Normal gait. Integumentary: Warm, Dry, [place], Intact. Neurologic: Alert, Oriented, Normal sensory, Normal motor function, No focal defects, Cranial Nerves II-XII are grossly intact, Normal deep tendon reflexes. Psychiatric: Cooperative, Appropriate mood & affect, Normal judgment. Coding Level of Care Code Est Pt Level 4 (10568) Complex EM visit Add On G2211 Diagnoses Gastroesophageal reflux disease, unspecified whether esophagitis present K21.9 Esophagitis presence: esophagitis presence not specified Hyperlipidemia, unspecified hyperlipidemia type E78.5 Hyperlipidemia type: unspecified Additional Codes PHQ-9 - 53625 - PHQ-9 Billing: Yes ([id number]) LUANA-7 Assessment Billing - LUANA-7 Assessment Tool: LUANA-7 Assessment 12748 ([id number]) Assessment & Plan Assessment & Plan (1) GERD (gastroesophageal reflux disease): Comment: - Continued use of omeprazole with instructions to take 30 to 40 minutes before eating to ensure efficacy. - Refill of medication provided for six months to provide adequate time for assessment of effectiveness. - Advised to identify and avoid dietary triggers, especially sweets, that may exacerbate symptoms. - Encouraged follow-up if symptoms persist or worsen despite medication adherence. Code(s): K21.9 - Gastro-esophageal reflux disease without esophagitis Category: Medical Qualifiers: Esophagitis presence: esophagitis presence not specified Qualified Code(s): K21.9 - Gastro-esophageal reflux disease without esophagitis Plan: - Continue Omeprazole (2) Hyperlipidemia: Comment: - Advised to implement dietary changes by reducing intake of unhealthy fats and avoiding junk foods. - Emphasized importance of lifestyle modifications given family history of early myocardial infarction. - Follow-up scheduled in six months to reassess lipid panel and consider pharmacological intervention if necessary. Code(s): E78.5 - Hyperlipidemia, unspecified Category: Medical Qualifiers: Hyperlipidemia type: unspecified Qualified Code(s): E78.5 - Hyperlipidemia, unspecified Plan: Repeat Lipid Panel in 6 months and decide on treatment at that time Plan I discussed the patient's dyspepsia and the importance of taking omeprazole as directed for optimal results. Additionally, I addressed the patient's elevated LDL cholesterol and the need for dietary modifications to manage hypercholesterolemia, considering his significant family history. The discussion included the potential long-term implications of untreated high cholesterol and dyspepsia. I emphasized the importance of follow-up in six months to reassess lipid levels and the potential necessity of medication if lifestyle modifications did not result in improvement. Orders: Orders Hemoglobin A1c 6 Months E78.5 - Hyperlipidemia, unspecified Lipid Panel 6 Months E78.5 - Hyperlipidemia, unspecified Medications: Refilled omeprazole 20 mg PO DAILY 90 caps 1RF Patient Instructions: - Take omeprazole 30 to 40 minutes before meals for best results. - Avoid eating sweets and junk food to help reduce cholesterol levels. - Implement dietary changes to include healthier food choices. - Follow up in six months for reevaluation of your cholesterol and overall health. - Contact the clinic if you experience persistent or worsening symptoms.
--- OUTSIDE RECORDS SUMMARY | 2025-03-28 08:02 | XMS_ITS | Encounter Summary ---
Author Organization [facility] Address [address] [place] [phone] Phone Care Team Providers Care Review Appraiser Name Role Phone Michael Sibley MD Primary Care Provider Unavailabl e Encounter Details Date Type Department Care Team (Late st Contact Info) Description 07/13/2012 Documentation [facility] [place] Family Medicine [address] [place] [address] Family Medicine, Physician [facility] [address] [place], [place] [phone] Social History Tobacco Use Types Packs/Day Years [...] on filedocumented in this encounter Care Teams Review Appraiser Relationship Specialty Start Date End Date Michael Sibley MD PCP - General 03/10/17 documented as of this encounter
--- OUTSIDE RECORDS SUMMARY | 2025-03-28 08:02 | XMS_ITS | Encounter Summary ---
Author Organization [facility] Address [address] [place] [phone] Phone Care Team Providers Care Dry House Tender Name Role Phone Michael Sibley MD Primary Care Provider Unavailabl e Encounter Details Date Type Department Care Team (Late st Contact Info) Description 03/16/2017 Conversion Encounter [facility] - [address] [id number] Social History Tobacco Use Types Packs/Day Years [...] on filedocumented in this encounter Care Teams Dry House Tender Relationship Specialty Start Date End Date Michael Sibley MD PCP - General 03/10/17 documented as of this encounter
--- OUTSIDE RECORDS SUMMARY | 2025-03-28 08:02 | XMS_ITS | Encounter Summary ---
Author Organization [facility] Address [address] [place] [phone] Phone Care Team Providers Care Driver License Technician Name Role Phone Michael Sibley MD Primary Care Provider Unavailabl e Encounter Details Date Type Department Care Team (Late st Contact Info) Description 12/18/2009 [place]ation [facility] [address] [place] [address] Family Medicine, Physician [facility] [address] [place], [place] [phone] Social History Tobacco Use Types Packs/Day Years [...] on filedocumented in this encounter Care Teams Driver License Technician Relationship Specialty Start Date End Date Michael Sibley MD PCP - General 03/10/17 documented as of this encounter
--- OUTSIDE RECORDS SUMMARY | 2025-03-28 08:02 | XMS_ITS | Encounter Summary ---
Author Organization [facility] Address [address] [place] [phone] Phone Care Team Providers Care Sports Manager Name Role Phone Michael Sibley MD Primary Care Provider Unavailabl e Encounter Details Date Type Department Care Team (Late st Contact Info) Description 04/16/2014 Documentation [facility] [place] [address] [place] [address] Family Medicine, Physician [facility] [address] [place], [place] [phone] Social History Tobacco Use Types Packs/Day Years [...] on filedocumented in this encounter Care Teams Sports Manager Relationship Specialty Start Date End Date Michael Sibley MD PCP - General 03/10/17 documented as of this encounter
--- OUTSIDE RECORDS SUMMARY | 2025-03-28 08:02 | XMS_ITS | Clinical Summary ---
Author Organization [facility] Address [address] [place] [phone] Phone Care Team Providers Care Dials Supervisor Name Role Phone Michael Sibley MD Primary [...] history of Hyperlipidemia, Family history of Sudden /MA under 55 Social History Tobacco Use Types [...] 105 08/03/2015 12:00 AM EST Temperature 36.6 C (97.9 F) 10/09/2015 12:00 AM EST Respiratory Rate - - Oxygen Saturation - [...] 11/17/2016 11/17/2006, 03/24/1999, 11/07/1995, Additional history exists COVID-19 Vaccine (2023- season) 2024 Influenza Vaccines (#1) 2025 06/23/20 15, 07/05/2012, 10/13/2011, Additional history exists HIB Vaccines Completed 11/07/1995, 12/29, 1994, Additional [...] age to complete this topic Care Teams Dials Supervisor Relationship Specialty Start Date End Date Michael Sibley MD PCP - General 03/10/17
[2025-03-28 08:03] VITALS: BP 128/62; PULSE 85; RESP 16; TEMP 36.8; O2SAT 98; BMI 25.8
== END ==
PROVIDERS: PCP Student in an Organized Health Care Education/Training Program; Visit Provider Student in an Organized Health Care Education/Training Program
DX: K21.9 Gastro-esophageal reflux disease without esophagitis (principal); E78.5 Hyperlipidemia, unspecified

== ENCOUNTER → 2025-03-28 07:59 | Outpatient (BNVA) | payer OTHER, SELFPAY | PROVIDERS: PCP Internal Medicine; Visit Provider Student in an Organized Health Care Education/Training Program | DX: K21.9 Gastro-esophageal reflux disease without esophagitis (principal); E78.5 Hyperlipidemia, unspecified; Z79.899 Other long term (current) drug therapy; Z13.31 Encounter for screening for depression; Z13.39 Encounter for screening examination for other mental health and behavioral disorders | CPT/HCPCS: 96127 ==